=== PATIENT | female | born 2000 | race Hispanic/Latino ===

== ENCOUNTER 2023-10-10 18:59 | Emergency (ER) | payer OTHER, SELFPAY ==
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
[2023-10-10 19:17] VITALS: BP 105/69; PULSE 96; RESP 18; TEMP 36.6; O2SAT 96
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
[2023-10-10] MEDS: IBUPROFEN 600 MG TABLET PO (19:50)
[2023-10-10] MEDS: LIDOCAINE 5% PATCH 1 PATCH TRANSDERM (19:51)
[2023-10-10 20:44] VITALS: BP 110/72; PULSE 78; RESP 15; TEMP 36.8; O2SAT 100
== END 2023-10-10 20:45 | disposition home or self-care (01) ==
PROVIDERS: Emergency Provider Emergency Medicine
DX: M79.602 Pain in left arm (principal); M54.2 Cervicalgia; V89.2XXA Person injured in unspecified motor-vehicle accident, traffic, initial encounter
CPT/HCPCS: 72040; 99283; A9270